=== PATIENT | male | born 1955 | race Caucasian/White ===

== ENCOUNTER 2020-11-20 14:24 | Emergency (ER) | payer OTHER, MEDICAID ==
[~2020-11-20] VITALS: Ht 172.7 cm; Wt 68.0 kg
[2020-11-20 14:24] VITALS: BP_SYST 144
[2020-11-20] MEDS ORDERED: BACLOFEN 10 MG TABLET PO ONE (15:00)
[2020-11-20] MEDS ORDERED: HYDROcodone/ACETAMIN 5-325 MG TAB (NORCO/ VICODIN) PO ONE (15:00)
[2020-11-20 16:54] VITALS: BP_SYST 144
== END 2020-11-20 16:57 | disposition home or self-care (01) ==
LOC: SED 14:24
DX: G89.29 Other chronic pain (principal); M54.5 Low back pain; W18.39XA Other fall on same level, initial encounter; Y93.89 Activity, other specified; Y92.89 Other specified places as the place of occurrence of the external cause; Y99.8 Other external cause status
CPT/HCPCS: 72100-TC; 99283

== ENCOUNTER 2023-06-09 23:10 | Emergency (ER) | payer OTHER, MEDICAID ==
[~2023-06-09] VITALS: Ht 172.7 cm; Wt 73.5 kg
[2023-06-09 23:23] VITALS: BP_SYST 145; PULSE 102; RESP 20; TEMP 98.9; O2SAT 97
[2023-06-10] MEDS ORDERED: MAG-AL HYDROX/SIMETH 30 ML UDC PO ONE (00:30)
[2023-06-10] MEDS ORDERED: FAMOTIDINE 20 MG TABLET PO ONE (00:30)
[2023-06-10 00:44] LABS: BASOPHILS # (AUTO) 0.1 K/uL (0.0-0.2); BASOPHILS % (AUTO) 1.8 % (0.0-2.0); EOSINOPHILS # (AUTO) 0.2 K/uL (0.0-0.4); EOSINOPHILS % (AUTO) 3.3 % (0.0-4.0); LYMPHOCYTES # (AUTO) 0.8 K/uL (1.0-5.5); LYMPHOCYTES % (AUTO) 14.2 % (20.5-51.5); MEAN CORPUSCULAR HEMOGLOBIN 29 pg (27-31); MEAN CORPUSCULAR HGB CONC 32 % (32-36); MEAN CORPUSCULAR VOLUME 89 fL (79.0-98.0); MONOCYTES # (AUTO) 0.9 K/uL (0.0-1.0); MONOCYTES % (AUTO) 15.7 % (1.7-9.3); NEUTROPHILS # (AUTO) 3.6 K/uL (1.8-7.7); PLATELET COUNT (AUTO) 139 K/uL (130-430); RED BLOOD CELL COUNT(AUTO) 3.48 MIL/uL (4.2-6.2); RED CELL DISTRIBUTION WIDTH 19.5 % (9.0-15.0); WHITE BLOOD COUNT (AUTO) 5.5 K/uL (4.8-10.8)
[2023-06-10 00:47] LABS: ANION GAP 10 (5-15); CHLORIDE 110 mmol/L (98-107); CREATININE 0.83 mg/dL (0.55-1.30); GFR AFRICAN AMERICAN 118 mL/min (>90); GLUCOSE 109 mg/dL (74-106); UREA NITROGEN, BLOOD 24 mg/dL (8-21)
[2023-06-10 00:53] LABS: ALANINE AMINOTRANSFERASE 49 U/L (12-78); ALBUMIN 2.4 g/dL (3.4-4.8); ASPARTATE AMINOTRANSFERASE 88 U/L (10-37); LIPASE 394 U/L (73-393); TOTAL BILIRUBIN 0.8 mg/dL (0.0-1.0)
[2023-06-10] MEDS ORDERED: KETOROLAC TROMETHAMINE 30 MG VIAL IVP ONE (02:15)
[2023-06-10] MEDS ORDERED: FAMO20TA8 PO (02:48)
[2023-06-10] MEDS ORDERED: POTASSIUM CHLORIDE 20 MEQ/PKT PACKET PO ONE (03:00)
[2023-06-10 03:38] VITALS: BP_SYST 170; PULSE 91; RESP 20; TEMP 97.7; O2SAT 97
== END 2023-06-10 03:38 | disposition home or self-care (01) ==
LOC: SED 23:10
DX: R91.1 Solitary pulmonary nodule (principal); R10.12 Left upper quadrant pain; R06.02 Shortness of breath; Z85.46 Personal history of malignant neoplasm of prostate; Z79.899 Other long term (current) drug therapy
CPT/HCPCS: 99285; 71045; 80053; 83880; 83690; 85025; 84484; 36415; 74176; 96374; 76376; J1885